=== PATIENT | female | born 2005 | race Two or more races ===

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

== ENCOUNTER 2023-03-23 15:14 | Emergency (ER) | payer MEDICAID ==
[~2023-03-23] VITALS: Ht 157.5 cm; Wt 81.6 kg
[~2023-03-23 15:14] MED LIST changes: +ONDA4TAB11 PO
[2023-03-23] MEDS ORDERED: diphenhydrAMINE HCL ELIX 25 MG/10 ML UDC ONE (16:59)
[2023-03-23] MEDS ORDERED: DIPHENHYDRAMINE HCL 12.5 MG/5 ML UDC PO ONE (17:00)
[2023-03-23 17:28] LABS: HEMATOCRIT 41 % (33-45); HEMOGLOBIN 13.5 g/dL (11.5-14.8); LYMPHOCYTES # (AUTO) 1.7 K/uL (0.8-4.8); LYMPHOCYTES % (AUTO) 12.4 % (20.0-44.0); MEAN CORPUSCULAR HEMOGLOBIN 27 PG (26.0-33.0); MEAN CORPUSCULAR HGB CONC 33 g/dl (31.0-36.0); MEAN CORPUSCULAR VOLUME 80 fL (82-100); MONOCYTES # (AUTO) 0.9 K/uL (0.1-1.30); MONOCYTES % (AUTO) 6.6 % (2.0-12.0); NEUTROPHILS # (AUTO) 11.3 K/uL (1.8-8.9); PLATELET COUNT (AUTO) 462 K/uL (150-450); RED BLOOD CELL COUNT(AUTO) 5.07 MIL/uL (4.0-5.2); RED CELL DISTRIBUTION WIDTH 15.1 % (11.5-15.0); WHITE BLOOD COUNT (AUTO) 13.9 K/uL (4.3-11.0)
[2023-03-23 17:45] LABS: MAGNESIUM 2.3 mg/dL (1.8-2.4)
[2023-03-23 17:51] LABS: PREGNANCY TEST URINE QUAL NEGATIVE (NEGATIVE)
[2023-03-23 17:57] LABS: ALBUMIN 5.2 g/dL (3.4-5.0); BILIRUBIN,DIRECT 0.2 mg/dL (0.0-0.2); BILIRUBIN,TOTAL 0.6 mg/dL (0.2-1.0); CALCIUM, SERUM 10.5 mg/dL (8.5-10.1); CREATININE 1.2 mg/dL (0.6-1.3); TOTAL PROTEIN, SERUM 9.5 g/dL (6.4-8.2)
[2023-03-23 17:59] LABS: POTASSIUM 2.7 mmol/L (3.5-5.1)
[2023-03-23 18:26] LABS: THYROID STIMULATING HORMONE 1.571 uIU/mL (0.358-3.74)
[2023-03-23] MEDS ORDERED: ONDANSETRON HCL/PF 4 MG/2 ML VIAL IV ONE (18:30)
[2023-03-23] MEDS ORDERED: POTASSIUM CHLORIDE 20 MEQ TAB.PRT.SR PO ONE ×2 (18:30→18:52)
[2023-03-23] MEDS ORDERED: ONDANSETRON HCL/PF 4 MG/2 ML VIAL ONE (18:47)
[2023-03-23] MEDS ORDERED: ONDA4TAB5 PO (20:28)
[2023-03-23 21:45] VITALS: BP 113/56; TEMP 98.7; O2SAT 100
== END 2023-03-23 20:35 | disposition home or self-care (01) ==
LOC: ER 15:23
DX: E87.6 Hypokalemia (principal); R11.2 Nausea with vomiting, unspecified; Z88.8 Allergy status to other drugs, medicaments and biological substances
CPT/HCPCS: 99285; 74176; 96374; 85025; 80048; 80076; 83735; 84703; 36415; 84443; Q0163 ×2; J2405

== ENCOUNTER 2023-03-25 06:12 | Emergency (ER) | payer MEDICAID ==
[~2023-03-25] VITALS: Ht 157.5 cm; Wt 81.6 kg
[2023-03-25] MEDS ORDERED: FAMOTIDINE/PF INJ 20 MG/2 ML VIAL IV ONE ×2 (07:30→07:58)
[2023-03-25] MEDS ORDERED: ONDANSETRON HCL/PF 4 MG/2 ML VIAL IVP ONE (07:30)
[2023-03-25] MEDS ORDERED: IV NS 0.9% 1,000 ML BAG IV ONE (07:30)
[2023-03-25 07:56] LABS: BASOPHILS % (AUTO) 0.3 % (0.0-2.0); HEMATOCRIT 40 % (33-45); HEMOGLOBIN 13.4 g/dL (11.5-14.8); LYMPHOCYTES # (AUTO) 2.6 K/uL (0.8-4.8); MEAN CORPUSCULAR HEMOGLOBIN 27 PG (26.0-33.0); MEAN CORPUSCULAR HGB CONC 34 g/dl (31.0-36.0); MEAN CORPUSCULAR VOLUME 79 fL (82-100); MONOCYTES # (AUTO) 1.1 K/uL (0.1-1.30); MONOCYTES % (AUTO) 8.8 % (2.0-12.0); NEUTROPHILS # (AUTO) 8.6 K/uL (1.8-8.9); NEUTROPHILS % (AUTO) 69.9 % (43.0-81.0); PLATELET COUNT (AUTO) 456 K/uL (150-450); RED BLOOD CELL COUNT(AUTO) 5.01 MIL/uL (4.0-5.2); RED CELL DISTRIBUTION WIDTH 14.8 % (11.5-15.0); WHITE BLOOD COUNT (AUTO) 12.3 K/uL (4.3-11.0)
[2023-03-25] MEDS ORDERED: ONDANSETRON HCL/PF 4 MG/2 ML VIAL ONE ×2 (07:58→11:55)
[2023-03-25 08:08] LABS: CALCIUM, SERUM 10.6 mg/dL (8.5-10.1); CREATININE 1.1 mg/dL (0.6-1.3)
[2023-03-25 08:11] LABS: POTASSIUM 2.7 mmol/L (3.5-5.1)
[2023-03-25 08:18] LABS: BILIRUBIN,DIRECT 0.3 mg/dL (0.0-0.2); BILIRUBIN,TOTAL 1.1 mg/dL (0.2-1.0); TOTAL PROTEIN, SERUM 8.8 g/dL (6.4-8.2)
[2023-03-25] MEDS ORDERED: POTASSIUM CL. PREMIX PERIPHER. 50 ML ONE (08:26)
[2023-03-25] MEDS ORDERED: POTASSIUM CHLORIDE 20 MEQ TAB.PRT.SR PO ONE ×2 (08:26→08:30)
[2023-03-25] MEDS ORDERED: POTASSIUM CHLORIDE 10 MEQ/50 ML PREMIXED IVPB FOR PERIPHERAL LINE IV ONE (08:30)
[2023-03-25] MEDS ORDERED: ONDANSETRON HCL/PF - ER 4 MG/2 ML VIAL IV ONE (12:00)
[2023-03-25] MEDS ORDERED: MECL-159 PO (13:01)
[2023-03-25] MEDS ORDERED: ONDA4TAB11 PO (14:42)
[2023-03-25 19:00] VITALS: BP 121/69; TEMP 98.2; O2SAT 97
[2023-03-25] MEDS ORDERED: PROC-11 PO (23:50)
== END 2023-03-25 16:45 | disposition home or self-care (01) ==
LOC: ER 06:19
DX: E87.6 Hypokalemia (principal); R11.2 Nausea with vomiting, unspecified; I10 Essential (primary) hypertension; Z88.8 Allergy status to other drugs, medicaments and biological substances
CPT/HCPCS: 99284; 96365; 96375; 96361; 93005; 96376; 85025; 80048; 83690; 80076; 83735; 36415; J3490; J2405 ×2; J7030; J3480; A4223

== ENCOUNTER 2023-03-25 21:25 | Emergency (ER) | payer MEDICAID ==
[~2023-03-25] VITALS: Ht 157.5 cm; Wt 81.6 kg
[~2023-03-25 21:25] MED LIST changes: +MECL-159 PO
[2023-03-25] MEDS ORDERED: PROCHLORPERAZINE EDISYLATE 10 MG/2 ML VIAL ONE (22:17)
[2023-03-25] MEDS ORDERED: PROCHLORPERAZINE EDISYLATE 10 MG/2 ML VIAL IVP ONE (22:30)
[2023-03-25 22:53] LABS: CALCIUM, SERUM 9.5 mg/dL (8.5-10.1); CREATININE 1.1 mg/dL (0.6-1.3); POTASSIUM 2.9 mmol/L (3.5-5.1)
[2023-03-25 22:54] LABS: BASOPHILS % (AUTO) 0.2 % (0.0-2.0); EOSINOPHILS % (AUTO) 0.1 % (0.0-6.0); HEMATOCRIT 36 % (33-45); LYMPHOCYTES # (AUTO) 2.8 K/uL (0.8-4.8); LYMPHOCYTES % (AUTO) 21.3 % (20.0-44.0); MEAN CORPUSCULAR HEMOGLOBIN 27 PG (26.0-33.0); MEAN CORPUSCULAR HGB CONC 33 g/dl (31.0-36.0); MEAN CORPUSCULAR VOLUME 80 fL (82-100); MONOCYTES % (AUTO) 7.7 % (2.0-12.0); NEUTROPHILS # (AUTO) 9.3 K/uL (1.8-8.9); NEUTROPHILS % (AUTO) 70.7 % (43.0-81.0); PLATELET COUNT (AUTO) 393 K/uL (150-450); RED BLOOD CELL COUNT(AUTO) 4.52 MIL/uL (4.0-5.2); RED CELL DISTRIBUTION WIDTH 14.8 % (11.5-15.0); WHITE BLOOD COUNT (AUTO) 13.2 K/uL (4.3-11.0)
[2023-03-25] MEDS ORDERED: PROC-11 PO (23:50)
[2023-03-26 00:16] VITALS: BP 124/69; TEMP 98.1; O2SAT 100
== END 2023-03-26 00:16 | disposition home or self-care (01) ==
LOC: ER 21:27
DX: R11.2 Nausea with vomiting, unspecified (principal); F17.200 Nicotine dependence, unspecified, uncomplicated; Z79.899 Other long term (current) drug therapy; Z88.1 Allergy status to other antibiotic agents
CPT/HCPCS: 99284; 96374; 93005; 85025; 80048; 36415; J0780

== ENCOUNTER 2023-03-26 23:59 | Inpatient (IN) | payer MEDICAID ==
[~2023-03-26] VITALS: Ht 157.5 cm; Wt 83.5 kg
[~2023-03-26 23:59] MED LIST changes: +PROC-11 PO
[2023-03-27] MEDS ORDERED: ONDANSETRON HCL/PF 4 MG/2 ML VIAL ONE ×2 (00:28→02:04)
[2023-03-27] MEDS ORDERED: ONDANSETRON HCL/PF 4 MG/2 ML VIAL IM ONE (00:30)
[2023-03-27 00:54] LABS: BASOPHILS # (AUTO) 0.1 K/uL (0.0-0.2); BASOPHILS % (AUTO) 0.5 % (0.0-2.0); EOSINOPHILS # (AUTO) 0.1 K/uL (0.0-0.7); EOSINOPHILS % (AUTO) 0.8 % (0.0-6.0); HEMATOCRIT 37 % (33-45); HEMOGLOBIN 12.3 g/dL (11.5-14.8); LYMPHOCYTES # (AUTO) 1.7 K/uL (0.8-4.8); MEAN CORPUSCULAR HEMOGLOBIN 26 PG (26.0-33.0); MEAN CORPUSCULAR HGB CONC 33 g/dl (31.0-36.0); MEAN CORPUSCULAR VOLUME 79 fL (82-100); MONOCYTES # (AUTO) 0.6 K/uL (0.1-1.30); MONOCYTES % (AUTO) 5.4 % (2.0-12.0); NEUTROPHILS # (AUTO) 8.8 K/uL (1.8-8.9); NEUTROPHILS % (AUTO) 78.3 % (43.0-81.0); PLATELET COUNT (AUTO) 433 K/uL (150-450); RED BLOOD CELL COUNT(AUTO) 4.67 MIL/uL (4.0-5.2); RED CELL DISTRIBUTION WIDTH 14.5 % (11.5-15.0); WHITE BLOOD COUNT (AUTO) 11.2 K/uL (4.3-11.0)
[2023-03-27 01:00] LABS: CALCIUM, SERUM 9.6 mg/dL (8.5-10.1); CREATININE 1.1 mg/dL (0.6-1.3)
[2023-03-27 01:15] LABS: POTASSIUM 2.5 mmol/L (3.5-5.1)
[2023-03-27] MEDS ORDERED: POTASSIUM CHLORIDE 10 MEQ/50 ML PREMIXED IVPB FOR PERIPHERAL LINE IV ONE (01:30)
[2023-03-27] MEDS ORDERED: POTASSIUM CHLORIDE 20 MEQ TAB.PRT.SR PO ONE ×2 (01:30→11:30)
[2023-03-27] MEDS ORDERED: POTASSIUM CL. PREMIX PERIPHER. 50 ML ONE ×4 (01:50→04:29)
[2023-03-27] MEDS ORDERED: ONDANSETRON HCL/PF 4 MG/2 ML VIAL IV ONE (02:00)
[2023-03-27] MEDS ORDERED: MAGNESIUM HYDROXIDE 30 ML UDC PO PRN (02:30)
[2023-03-27] MEDS ORDERED: ACETAMINOPHEN 325 MG TABLET PO PRN (02:30)
[2023-03-27] MEDS ORDERED: MAG HYDROX/AL HYDROX/SIMETH 30 ML UDC PO PRN (02:30)
[2023-03-27] MEDS ORDERED: IV NS 0.9% 1,000 ML IV PRN (02:30)
[2023-03-27 04:30] VITALS: BP 113/77; TEMP 98.3; O2SAT 98
[2023-03-27] MEDS ORDERED: PROCHLORPERAZINE EDISYLATE 10 MG/2 ML VIAL ONE (05:34)
[2023-03-27 06:07] LABS: ALBUMIN 4.1 g/dL (3.4-5.0); MAGNESIUM 2.2 mg/dL (1.8-2.4); TOTAL PROTEIN, SERUM 7.5 g/dL (6.4-8.2)
[2023-03-27] MEDS: PROCHLORPERAZINE EDISYLATE 10 MG/2 ML VIAL IVP SCH ×3 (06:11→21:00)
[2023-03-27 06:19] LABS: POTASSIUM 2.4 mmol/L (3.5-5.1)
[2023-03-27 09:21] LABS: PREGNANCY TEST URINE QUAL NEGATIVE (NEGATIVE)
[2023-03-27] MEDS: PANTOPRAZOLE 40 MG VIAL IV SCH (10:27)
[2023-03-27] MEDS ORDERED: MORPHINE SULFATE INJ 2 MG/ML DISP.SYRIN IV PRN (11:30)
[2023-03-27] MEDS: POTASSIUM CL. PREMIX PERIPHER. 50 ML IV SCH ×5 (11:45→20:44)
[2023-03-27 12:18] VITALS: BP 130/86; TEMP 98.2; O2SAT 99
[2023-03-27 17:47] LABS: THYROID STIMULATING HORMONE 1.13 uIU/mL (0.358-3.74)
[2023-03-27] MEDS: ONDANSETRON HCL/PF 4 MG/2 ML VIAL IVP PRN (20:57)
[2023-03-28 01:03] VITALS: BP 112/68; TEMP 98.4; O2SAT 95
[2023-03-28] MEDS: PROCHLORPERAZINE EDISYLATE 10 MG/2 ML VIAL IVP SCH ×2 (05:00→13:00)
[2023-03-28 06:17] LABS: BASOPHILS % (AUTO) 0.2 % (0.0-2.0); EOSINOPHILS % (AUTO) 0.3 % (0.0-6.0); HEMATOCRIT 39 % (33-45); HEMOGLOBIN 12.7 g/dL (11.5-14.8); LYMPHOCYTES # (AUTO) 4.2 K/uL (0.8-4.8); LYMPHOCYTES % (AUTO) 33.6 % (20.0-44.0); MEAN CORPUSCULAR HEMOGLOBIN 27 PG (26.0-33.0); MEAN CORPUSCULAR HGB CONC 33 g/dl (31.0-36.0); MEAN CORPUSCULAR VOLUME 82 fL (82-100); MONOCYTES # (AUTO) 0.8 K/uL (0.1-1.30); MONOCYTES % (AUTO) 6.7 % (2.0-12.0); NEUTROPHILS # (AUTO) 7.5 K/uL (1.8-8.9); NEUTROPHILS % (AUTO) 59.2 % (43.0-81.0); PLATELET COUNT (AUTO) 406 K/uL (150-450); RED BLOOD CELL COUNT(AUTO) 4.75 MIL/uL (4.0-5.2); RED CELL DISTRIBUTION WIDTH 14.5 % (11.5-15.0); WHITE BLOOD COUNT (AUTO) 12.7 K/uL (4.3-11.0)
[2023-03-28 06:52] LABS: CREATININE 0.9 mg/dL (0.6-1.3); MAGNESIUM 2.5 mg/dL (1.8-2.4); PHOSPHORUS 4.1 mg/dL (2.5-4.9); POTASSIUM 3.4 mmol/L (3.5-5.1)
[2023-03-28 07:00] VITALS: BP 109/80; TEMP 98.4; O2SAT 97
[2023-03-28] MEDS: PANTOPRAZOLE 40 MG VIAL IV SCH (10:14)
[2023-03-28] MEDS ORDERED: POTASSIUM CHLORIDE 20 MEQ TAB.PRT.SR PO ONE (10:30)
[2023-03-28] MEDS ORDERED: POTASSIUM CL. PREMIX PERIPHER. 50 ML IV SCH (10:30)
[2023-03-28] MEDS: ONDANSETRON HCL/PF 4 MG/2 ML VIAL IVP PRN (10:57)
== END 2023-03-28 15:37 | disposition home or self-care (01) | DRG 249 ==
LOC: ER 03-27 00:03 → TELE 03-27 04:05
DX: R11.15 Cyclical vomiting syndrome unrelated to migraine (principal); E87.1 Hypo-osmolality and hyponatremia; E66.9 Obesity, unspecified; E87.6 Hypokalemia; R11.2 Nausea with vomiting, unspecified; Z91.09 Other allergy status, other than to drugs and biological substances; F41.9 Anxiety disorder, unspecified; F12.10 Cannabis abuse, uncomplicated; Z71.51 Drug abuse counseling and surveillance of drug abuser; Z68.33 Body mass index [BMI] 33.0-33.9, adult
CPT/HCPCS: 36415; 70486-TC; 80048-TC; 80053-TC; 83735-TC; 84100-TC; 84439-TC; 84443-TC; 84481; 84703-TC; 85025-TC; A4223; C9113; G0378; J0780; J2270; J2405; J3480; J7030; J7040; J7050

== ENCOUNTER 2023-04-05 20:48 | Inpatient (IN) | payer MEDICAID ==
[~2023-04-05] VITALS: Ht 157.5 cm; Wt 81.6 kg
[~2023-04-05 20:48] MED LIST changes: -MECL-159 PO; -OMEP20TA5 PO; -ONDA4TAB5 PO
[2023-04-05] MEDS ORDERED: diphenhydrAMINE HCL 50 MG/ML VIAL IV ONE (22:30)
[2023-04-05] MEDS ORDERED: PROCHLORPERAZINE EDISYLATE 10 MG/2 ML VIAL IVP ONE (22:30)
[2023-04-05] MEDS ORDERED: IV D5 LR 1,000 ML IV ONE (22:30)
[2023-04-05] MEDS ORDERED: PROCHLORPERAZINE EDISYLATE 10 MG/2 ML VIAL ONE (22:43)
[2023-04-05] MEDS ORDERED: diphenhydrAMINE HCL 50 MG/ML VIAL ONE (22:43)
[2023-04-05 22:49] LABS: BASOPHILS # (AUTO) 0.2 K/uL (0.0-0.2); BASOPHILS % (AUTO) 1.3 % (0.0-2.0); HEMATOCRIT 38 % (33-45); HEMOGLOBIN 12.4 g/dL (11.5-14.8); LYMPHOCYTES # (AUTO) 1.1 K/uL (0.8-4.8); MEAN CORPUSCULAR HEMOGLOBIN 27 PG (26.0-33.0); MEAN CORPUSCULAR HGB CONC 33 g/dl (31.0-36.0); MEAN CORPUSCULAR VOLUME 81 fL (82-100); MONOCYTES # (AUTO) 0.2 K/uL (0.1-1.30); MONOCYTES % (AUTO) 1.8 % (2.0-12.0); NEUTROPHILS # (AUTO) 10.8 K/uL (1.8-8.9); NEUTROPHILS % (AUTO) 87.9 % (43.0-81.0); PLATELET COUNT (AUTO) 500 K/uL (150-450); RED BLOOD CELL COUNT(AUTO) 4.67 MIL/uL (4.0-5.2); RED CELL DISTRIBUTION WIDTH 15.2 % (11.5-15.0); WHITE BLOOD COUNT (AUTO) 12.3 K/uL (4.3-11.0)
[2023-04-05 23:00] LABS: CALCIUM, SERUM 9.6 mg/dL (8.5-10.1); CREATININE 0.9 mg/dL (0.6-1.3); POTASSIUM 3.6 mmol/L (3.5-5.1)
[2023-04-05 23:06] LABS: ALBUMIN 4.3 g/dL (3.4-5.0); BILIRUBIN,DIRECT 0.1 mg/dL (0.0-0.2); BILIRUBIN,TOTAL 0.4 mg/dL (0.2-1.0); TOTAL PROTEIN, SERUM 8.4 g/dL (6.4-8.2)
[2023-04-06] MEDS ORDERED: diphenhydrAMINE HCL 50 MG/ML VIAL ONE (04:58)
[2023-04-06] MEDS ORDERED: ACETAMINOPHEN 325 MG TABLET PO PRN (05:00)
[2023-04-06] MEDS ORDERED: PROCHLORPERAZINE EDISYLATE 10 MG/2 ML VIAL IVP ONE (05:00)
[2023-04-06] MEDS ORDERED: IV NS 0.9% 1,000 ML IV PRN (05:00)
[2023-04-06] MEDS ORDERED: MAG HYDROX/AL HYDROX/SIMETH 30 ML UDC PO PRN (05:00)
[2023-04-06] MEDS ORDERED: ALPRAZOLAM 0.5 MG TABLET PO PRN (05:00)
[2023-04-06] MEDS ORDERED: MAGNESIUM HYDROXIDE 30 ML UDC PO PRN (05:00)
[2023-04-06] MEDS ORDERED: ONDANSETRON HCL/PF 4 MG/2 ML VIAL IVP PRN (05:00)
[2023-04-06] MEDS ORDERED: Z GUARD REMEDY 4 OZ OINT TP PRN (05:00)
[2023-04-06] MEDS ORDERED: diphenhydrAMINE HCL 50 MG/ML VIAL IV ONE (05:00)
[2023-04-06] MEDS: PROCHLORPERAZINE EDISYLATE 10 MG/2 ML VIAL IVP SCH ×3 (05:00→20:40)
[2023-04-06] MEDS ORDERED: ONDANSETRON HCL/PF 4 MG/2 ML VIAL IV PRN (05:00)
[2023-04-06 06:09] LABS: PREGNANCY TEST URINE QUAL NEGATIVE (NEGATIVE)
[2023-04-06 06:20] VITALS: O2SAT 98
[2023-04-06] MEDS: PANTOPRAZOLE 40 MG VIAL IV SCH (09:00)
[2023-04-06] MEDS ORDERED: PANTOPRAZOLE 40 MG VIAL ONE (09:45)
[2023-04-06] MEDS: diphenhydrAMINE HCL 50 MG/ML VIAL IV PRN (13:56)
[2023-04-06 20:48] VITALS: BP 118/64; TEMP 98.1; O2SAT 98
[2023-04-06] MEDS ORDERED: ZOLPIDEM TARTRATE 5 MG TABLET PO PRN (22:00)
[2023-04-07] MEDS: diphenhydrAMINE HCL 50 MG/ML VIAL IV PRN (01:56)
[2023-04-07] MEDS: PROCHLORPERAZINE EDISYLATE 10 MG/2 ML VIAL IVP SCH (05:00)
[2023-04-07 07:30] VITALS: BP 106/68; TEMP 97.3; O2SAT 99
[2023-04-07 07:35] LABS: BASOPHILS % (AUTO) 0.2 % (0.0-2.0); EOSINOPHILS % (AUTO) 0.3 % (0.0-6.0); HEMATOCRIT 33 % (33-45); HEMOGLOBIN 10.9 g/dL (11.5-14.8); LYMPHOCYTES % (AUTO) 40.6 % (20.0-44.0); MEAN CORPUSCULAR HEMOGLOBIN 27 PG (26.0-33.0); MEAN CORPUSCULAR HGB CONC 33 g/dl (31.0-36.0); MEAN CORPUSCULAR VOLUME 82 fL (82-100); MONOCYTES % (AUTO) 9.7 % (2.0-12.0); NEUTROPHILS # (AUTO) 4.9 K/uL (1.8-8.9); NEUTROPHILS % (AUTO) 49.2 % (43.0-81.0); PLATELET COUNT (AUTO) 376 K/uL (150-450); RED CELL DISTRIBUTION WIDTH 15.5 % (11.5-15.0); WHITE BLOOD COUNT (AUTO) 9.9 K/uL (4.3-11.0)
[2023-04-07 07:46] LABS: CALCIUM, SERUM 8.8 mg/dL (8.5-10.1); CREATININE 0.7 mg/dL (0.6-1.3); MAGNESIUM 2.3 mg/dL (1.8-2.4); PHOSPHORUS 4.5 mg/dL (2.5-4.9)
[2023-04-07] MEDS ORDERED: POTASSIUM CL. PREMIX PERIPHER. 50 ML IV SCH (09:00)
[2023-04-07] MEDS: PANTOPRAZOLE 40 MG VIAL IV SCH (10:44)
== END 2023-04-07 13:25 | disposition left against medical advice (07) | DRG 249 ==
LOC: ER 20:48 → TRANSITION 04-06 07:18 → MED 04-06 11:20
PROVIDERS: ADMIT Nurse Practitioner Acute Care; ATTEND Nurse Practitioner Acute Care
DX: R11.2 Nausea with vomiting, unspecified (principal); D72.829 Elevated white blood cell count, unspecified; R11.15 Cyclical vomiting syndrome unrelated to migraine; E86.0 Dehydration; D75.839 Thrombocytosis, unspecified; E66.9 Obesity, unspecified; Z68.32 Body mass index [BMI] 32.0-32.9, adult; Z71.51 Drug abuse counseling and surveillance of drug abuser; F12.10 Cannabis abuse, uncomplicated
CPT/HCPCS: 36415; 80048-TC; 80076-TC; 83690-TC; 83735-TC; 84100-TC; 84703-TC; 85025-TC; A4223; C9113; G0378; J0780; J1200; J2405; J3480; J3490; J7030; J7050

== ENCOUNTER 2023-06-20 07:31 | Inpatient (IN) | payer MEDICAID, OTHER ==
[~2023-06-20] VITALS: Ht 157.5 cm; Wt 85.7 kg
[2023-06-20] MEDS ORDERED: ONDANSETRON HCL/PF 4 MG/2 ML VIAL ONE ×4 (07:47→17:28)
[2023-06-20] MEDS: IV NS 0.9% 1,000 ML BAG IV ONE (08:07)
[2023-06-20] MEDS: ONDANSETRON HCL/PF 4 MG/2 ML VIAL IVP ONE (08:08)
[2023-06-20 08:16] LABS: APPEARANCE,URINE CLEAR (CLEAR); BILIRUBIN,URINE NEGATIVE (NEGATIVE); BLOOD, URINE NEGATIVE Ery/uL (NEGATIVE); COLOR,URINE YELLOW (YELLOW); KETONES,URINE TRACE mg/dL (NEGATIVE); LEUKOCYTE ESTERASE ,URINE NEGATIVE (NEGATIVE); NITRITE, URINE NEGATIVE (NEGATIVE); PROTEIN,URINE NEGATIVE (NEGATIVE); UGLUCOSE NEGATIVE (NEGATIVE); UROBILINOGEN,URINE 0.2 EU/dL (0.2)
[2023-06-20 08:18] LABS: PREGNANCY TEST URINE QUAL NEGATIVE (NEGATIVE)
[2023-06-20 08:18] LABS: BASOPHILS % (AUTO) 0.3 % (0.0-2.0); EOSINOPHILS % (AUTO) 0.1 % (0.0-6.0); HEMATOCRIT 38 % (33-45); HEMOGLOBIN 12.6 g/dL (11.5-14.8); LYMPHOCYTES # (AUTO) 2.2 K/uL (0.8-4.8); LYMPHOCYTES % (AUTO) 16.6 % (20.0-44.0); MEAN CORPUSCULAR HEMOGLOBIN 27 PG (26.0-33.0); MEAN CORPUSCULAR HGB CONC 34 g/dl (31.0-36.0); MEAN CORPUSCULAR VOLUME 80 fL (82-100); MONOCYTES # (AUTO) 0.9 K/uL (0.1-1.30); MONOCYTES % (AUTO) 6.9 % (2.0-12.0); NEUTROPHILS # (AUTO) 10.1 K/uL (1.8-8.9); NEUTROPHILS % (AUTO) 76.1 % (43.0-81.0); PLATELET COUNT (AUTO) 489 K/uL (150-450); RED CELL DISTRIBUTION WIDTH 14.2 % (11.5-15.0); WHITE BLOOD COUNT (AUTO) 13.3 K/uL (4.3-11.0)
[2023-06-20] MEDS: FAMOTIDINE/PF INJ 20 MG/2 ML VIAL IV ONE (08:30)
[2023-06-20] MEDS: MAG HYDROX/AL HYDROX/SIMETH 30 ML UDC PO ONE (08:30)
[2023-06-20] MEDS: LIDOCAINE VISCOUS 2% UD 15 ML UDC MM ONE (08:30)
[2023-06-20] MEDS: DICYCLOMINE HCL INJ 20 MG/2 ML AMPUL IM ONE (08:30)
[2023-06-20 08:38] LABS: ALBUMIN 4.5 g/dL (3.4-5.0); BILIRUBIN,DIRECT 0.1 mg/dL (0.0-0.2); BILIRUBIN,TOTAL 0.7 mg/dL (0.2-1.0); CALCIUM, SERUM 9.4 mg/dL (8.5-10.1); CREATININE 1.1 mg/dL (0.6-1.3); TOTAL PROTEIN, SERUM 8.7 g/dL (6.4-8.2)
[2023-06-20 08:40] LABS: POTASSIUM 2.6 mmol/L (3.5-5.1)
[2023-06-20] MEDS ORDERED: DICYCLOMINE HCL INJ 20 MG/2 ML AMPUL IM ONE (09:08)
[2023-06-20] MEDS ORDERED: POTASSIUM CL. PREMIX PERIPHER. 0 ML ONE (09:08)
[2023-06-20] MEDS ORDERED: LIDOCAINE VISCOUS 2% UD 15 ML UDC ONE (09:08)
[2023-06-20] MEDS ORDERED: MAG HYDROX/AL HYDROX/SIMETH 30 ML UDC ONE (09:08)
[2023-06-20] MEDS ORDERED: POTASSIUM CHLORIDE 20 MEQ TAB.PRT.SR PO ONE (09:09)
[2023-06-20] MEDS ORDERED: FAMOTIDINE/PF INJ 20 MG/2 ML VIAL IV ONE (09:09)
[2023-06-20] MEDS: POTASSIUM CHLORIDE 20 MEQ TAB.PRT.SR PO ONE (09:43)
[2023-06-20] MEDS: POTASSIUM CL. PREMIX PERIPHER. 50 ML IV SCH (09:43)
[2023-06-20] MEDS ORDERED: POTASSIUM CL. PREMIX PERIPHER. 50 ML ONE ×2 (10:15→11:47)
[2023-06-20] MEDS: ONDANSETRON HCL/PF 4 MG/2 ML VIAL IV ONE (11:25)
[2023-06-20 12:11] LABS: CALCIUM, SERUM 9.2 mg/dL (8.5-10.1); CREATININE 0.9 mg/dL (0.6-1.3)
[2023-06-20] MEDS ORDERED: MAGNESIUM HYDROXIDE 30 ML UDC PO PRN (14:00)
[2023-06-20] MEDS ORDERED: ACETAMINOPHEN 325 MG TABLET PO PRN (14:00)
[2023-06-20] MEDS ORDERED: MAG HYDROX/AL HYDROX/SIMETH 30 ML UDC PO PRN (14:00)
[2023-06-20] MEDS ORDERED: Z GUARD REMEDY 4 OZ OINT TP PRN ×2 (14:00→18:30)
[2023-06-20] MEDS ORDERED: MORPHINE SULFATE INJ 2 MG/ML DISP.SYRIN ONE (17:25)
[2023-06-20] MEDS: MORPHINE SULFATE INJ 2 MG/ML DISP.SYRIN IV PRN (17:28)
[2023-06-20] MEDS: ONDANSETRON HCL/PF 4 MG/2 ML VIAL IVP PRN (17:31)
[2023-06-20 20:00] VITALS: BP 124/88; TEMP 99; O2SAT 100
[2023-06-20] MEDS: Potassium Chloride 40 MEQ in IV D5/ 0.9% NACL 1,000 ML IV SCH (20:32)
[2023-06-21 08:00] VITALS: BP 117/76; TEMP 98.8; O2SAT 100
[2023-06-21] MEDS: PANTOPRAZOLE 40 MG VIAL IV SCH (08:20)
[2023-06-21] MEDS ORDERED: ONDA4TAB5 PO (11:32)
[2023-06-21 11:41] LABS: BASOPHILS % (AUTO) 0.2 % (0.0-2.0); EOSINOPHILS % (AUTO) 0.1 % (0.0-6.0); HEMATOCRIT 33 % (33-45); HEMOGLOBIN 11.1 g/dL (11.5-14.8); LYMPHOCYTES % (AUTO) 30.1 % (20.0-44.0); MEAN CORPUSCULAR HEMOGLOBIN 27 PG (26.0-33.0); MEAN CORPUSCULAR HGB CONC 33 g/dl (31.0-36.0); MEAN CORPUSCULAR VOLUME 82 fL (82-100); MONOCYTES # (AUTO) 1.1 K/uL (0.1-1.30); MONOCYTES % (AUTO) 8.6 % (2.0-12.0); NEUTROPHILS # (AUTO) 8.1 K/uL (1.8-8.9); PLATELET COUNT (AUTO) 427 K/uL (150-450); RED CELL DISTRIBUTION WIDTH 14.1 % (11.5-15.0); WHITE BLOOD COUNT (AUTO) 13.3 K/uL (4.3-11.0)
[2023-06-21] MEDS: POTASSIUM CHLORIDE 20 MEQ TAB.PRT.SR PO ONE (11:47)
[2023-06-21 11:57] LABS: ALBUMIN 3.6 g/dL (3.4-5.0); BILIRUBIN,TOTAL 0.4 mg/dL (0.2-1.0); CALCIUM, SERUM 8.7 mg/dL (8.5-10.1); CREATININE 0.7 mg/dL (0.6-1.3); MAGNESIUM 2.4 mg/dL (1.8-2.4); PHOSPHORUS 2.5 mg/dL (2.5-4.9); POTASSIUM 3.8 mmol/L (3.5-5.1)
== END 2023-06-21 16:35 | disposition home or self-care (01) | DRG 422 ==
LOC: ER 07:31 → MED 18:29
PROVIDERS: ADMIT Nurse Practitioner Acute Care; ATTEND Nurse Practitioner Acute Care
PROC: 05HC33Z Insertion of Infusion Device into Left Basilic Vein, Percutaneous Approach (ICD-10-PCS; principal; 2023-06-20)
DX: E86.1 Hypovolemia (principal); D72.829 Elevated white blood cell count, unspecified; D75.839 Thrombocytosis, unspecified; E87.6 Hypokalemia; E66.9 Obesity, unspecified; F12.188 Cannabis abuse with other cannabis-induced disorder; Z88.8 Allergy status to other drugs, medicaments and biological substances; Z68.34 Body mass index [BMI] 34.0-34.9, adult
CPT/HCPCS: 36415; 71045-TC; 80048-TC; 80053-TC; 80076-TC; 83690-TC; 83735-TC; 84100-TC; 84703-TC; 85025-TC; A4223; C9113; G0378; J0500; J2270; J2405; J3480; J3490; J7030; J7042

== ENCOUNTER 2023-09-24 12:00 | Emergency (ER) | payer OTHER ==
[~2023-09-24] VITALS: Ht 157.5 cm; Wt 81.6 kg
[~2023-09-24 12:00] MED LIST changes: -ONDA4TAB11 PO; +ONDA4TAB5 PO; -PROC-11 PO
[2023-09-24 12:10] VITALS: TEMP 98.2
[2023-09-24] MEDS: IV NS 0.9% 1,000 ML BAG IV ONE (13:20)
[2023-09-24] MEDS ORDERED: ONDANSETRON HCL/PF 4 MG/2 ML VIAL ONE ×2 (13:21→15:02)
[2023-09-24] MEDS: ONDANSETRON HCL/PF 4 MG/2 ML VIAL IVP ONE (13:22)
[2023-09-24 13:33] LABS: BASOPHILS % (AUTO) 0.3 % (0.0-2.0); EOSINOPHILS % (AUTO) 0.1 % (0.0-6.0); HEMATOCRIT 41 % (33-45); HEMOGLOBIN 13.2 g/dL (11.5-14.8); LYMPHOCYTES # (AUTO) 1.1 K/uL (0.8-4.8); LYMPHOCYTES % (AUTO) 8.7 % (20.0-44.0); MEAN CORPUSCULAR HEMOGLOBIN 26 PG (26.0-33.0); MEAN CORPUSCULAR HGB CONC 32 g/dl (31.0-36.0); MEAN CORPUSCULAR VOLUME 80 fL (82-100); MONOCYTES # (AUTO) 0.3 K/uL (0.1-1.30); NEUTROPHILS # (AUTO) 11.6 K/uL (1.8-8.9); NEUTROPHILS % (AUTO) 88.9 % (43.0-81.0); PLATELET COUNT (AUTO) 262 K/uL (150-450); RED BLOOD CELL COUNT(AUTO) 5.07 MIL/uL (4.0-5.2); RED CELL DISTRIBUTION WIDTH 14.7 % (11.5-15.0); WHITE BLOOD COUNT (AUTO) 13.1 K/uL (4.3-11.0)
[2023-09-24 13:38] LABS: CALCIUM, SERUM 9.6 mg/dL (8.5-10.1); CREATININE 0.8 mg/dL (0.6-1.3)
[2023-09-24 13:44] LABS: ALBUMIN 4.3 g/dL (3.4-5.0); BILIRUBIN,DIRECT 0.1 mg/dL (0.0-0.2); BILIRUBIN,TOTAL 0.3 mg/dL (0.2-1.0); TOTAL PROTEIN, SERUM 8.4 g/dL (6.4-8.2)
[2023-09-24] MEDS ORDERED: DICY10CA37 PO (14:45)
[2023-09-24] MEDS: ONDANSETRON HCL/PF 4 MG/2 ML VIAL IV ONE (15:08)
[2023-09-24] MEDS ORDERED: LIDOCAINE VISCOUS 2% UD 15 ML UDC ONE (15:12)
[2023-09-24] MEDS ORDERED: FAMOTIDINE/PF INJ 20 MG/2 ML VIAL IV ONE (15:12)
[2023-09-24] MEDS ORDERED: MAG HYDROX/AL HYDROX/SIMETH 30 ML UDC ONE (15:12)
[2023-09-24] MEDS ORDERED: DICYCLOMINE HCL INJ 20 MG/2 ML AMPUL IM ONE (15:12)
[2023-09-24] MEDS: DICYCLOMINE HCL INJ 20 MG/2 ML AMPUL IM ONE (15:22)
[2023-09-24] MEDS: FAMOTIDINE/PF INJ 20 MG/2 ML VIAL IV ONE (15:22)
[2023-09-24] MEDS: LIDOCAINE VISCOUS 2% UD 15 ML UDC MM ONE (16:50)
[2023-09-24] MEDS: MAG HYDROX/AL HYDROX/SIMETH 30 ML UDC PO ONE (16:51)
[2023-09-24 17:17] VITALS: BP 118/84; O2SAT 97
== END 2023-09-24 17:18 | disposition home or self-care (01) ==
LOC: ER 12:10
DX: R11.2 Nausea with vomiting, unspecified (principal); R10.84 Generalized abdominal pain; R19.7 Diarrhea, unspecified; F12.10 Cannabis abuse, uncomplicated; F17.200 Nicotine dependence, unspecified, uncomplicated; Z88.8 Allergy status to other drugs, medicaments and biological substances
CPT/HCPCS: 99284; 96374; 96361; 96375; 96376; 85025; 80048; 80076; 36415; 96372; J3490; J2405 ×2; J7030; J0500

== ENCOUNTER 2024-04-10 07:10 | Emergency (ER) | payer SELFPAY ==
[~2024-04-10] VITALS: Ht 157.5 cm; Wt 79.4 kg
[~2024-04-10 07:10] MED LIST changes: +DICY10CA37 PO
[2024-04-10] MEDS ORDERED: ONDANSETRON HCL/PF 4 MG/2 ML VIAL ONE ×2 (08:25→11:25)
[2024-04-10] MEDS ORDERED: FAMOTIDINE/PF INJ 20 MG/2 ML VIAL IV ONE (08:25)
[2024-04-10 08:27] LABS: BASOPHILS % (AUTO) 0.3 % (0.0-2.0); EOSINOPHILS # (AUTO) 0.1 K/uL (0.0-0.7); EOSINOPHILS % (AUTO) 1.1 % (0.0-6.0); HEMATOCRIT 42 % (33-45); HEMOGLOBIN 13.8 g/dL (11.5-14.8); LYMPHOCYTES # (AUTO) 0.9 K/uL (0.8-4.8); LYMPHOCYTES % (AUTO) 9.3 % (20.0-44.0); MEAN CORPUSCULAR HEMOGLOBIN 28 PG (26.0-33.0); MEAN CORPUSCULAR HGB CONC 33 g/dl (31.0-36.0); MEAN CORPUSCULAR VOLUME 84 fL (82-100); MONOCYTES # (AUTO) 0.5 K/uL (0.1-1.30); MONOCYTES % (AUTO) 5.3 % (2.0-12.0); NEUTROPHILS # (AUTO) 8.4 K/uL (1.8-8.9); PLATELET COUNT (AUTO) 504 K/uL (150-450); RED BLOOD CELL COUNT(AUTO) 4.96 MIL/uL (4.0-5.2); RED CELL DISTRIBUTION WIDTH 15.8 % (11.5-15.0)
[2024-04-10] MEDS: IV NS 0.9% 1,000 ML BAG IV ONE (08:29)
[2024-04-10] MEDS: ONDANSETRON HCL/PF - ER 4 MG/2 ML VIAL IV ONE ×2 (08:30→11:26)
[2024-04-10] MEDS: FAMOTIDINE/PF INJ 20 MG/2 ML VIAL IV ONE (08:30)
[2024-04-10 08:54] LABS: ALBUMIN 4.9 g/dL (3.4-5.0); BILIRUBIN,DIRECT 0.1 mg/dL (0.0-0.2); BILIRUBIN,TOTAL 0.4 mg/dL (0.2-1.0); POTASSIUM 3.8 mmol/L (3.5-5.1); TOTAL PROTEIN, SERUM 9.5 g/dL (6.4-8.2)
[2024-04-10] MEDS ORDERED: DICY10CA37 PO (12:23)
[2024-04-10] MEDS ORDERED: ONDA4TAB11 PO (12:23)
[2024-04-10 12:35] LABS: APPEARANCE,URINE SLIGHTLY CLOUDY (CLEAR); BILIRUBIN,URINE NEGATIVE (NEGATIVE); BLOOD, URINE NEGATIVE Ery/uL (NEGATIVE); COLOR,URINE YELLOW (YELLOW); KETONES,URINE NEGATIVE (NEGATIVE); LEUKOCYTE ESTERASE ,URINE NEGATIVE (NEGATIVE); NITRITE, URINE NEGATIVE (NEGATIVE); PH,URINE 6.5 (5.0-8.0); PROTEIN,URINE TRACE mg/dl (NEGATIVE); UGLUCOSE NEGATIVE (NEGATIVE); UROBILINOGEN,URINE 0.2 EU/dL (0.2)
[2024-04-10 12:45] LABS: ADD URINE CULTURE NO; BACTERIA,URINE 1+ /HPF (None Seen); RBC,URINE 0-2 /HPF (0-2)
[2024-04-10 12:46] LABS: MUCUS,URINE Few /LPF (None Seen); PREGNANCY TEST URINE QUAL NEGATIVE (NEGATIVE); TRICHOMONAS,URINE None Seen /HPF (None Seen); YEAST,URINE None Seen /HPF (None Seen)
[2024-04-10] MEDS ORDERED: DICYCLOMINE HCL 10 MG CAPSULE PO ONE (12:56)
[2024-04-10] MEDS: DICYCLOMINE HCL 10 MG CAPSULE PO ONE (13:00)
[2024-04-10 13:50] VITALS: BP 110/74; TEMP 98; O2SAT 99
== END 2024-04-10 13:50 | disposition home or self-care (01) ==
LOC: ER 07:10
DX: R19.7 Diarrhea, unspecified (principal); R11.2 Nausea with vomiting, unspecified; K21.9 Gastro-esophageal reflux disease without esophagitis; F17.200 Nicotine dependence, unspecified, uncomplicated; F12.90 Cannabis use, unspecified, uncomplicated
CPT/HCPCS: 99284; 96374; 96361; 96375; 96376; 85025; 80048; 83690; 80076; 84703; 81001; 36415; J3490; J2405 ×4; J7030

== ENCOUNTER 2024-05-19 12:15 | Emergency (ER) | payer MEDICAID ==
[~2024-05-19] VITALS: Ht 157.5 cm; Wt 90.7 kg
[~2024-05-19 12:15] MED LIST changes: +ONDA4TAB11 PO
[2024-05-19] MEDS ORDERED: ONDANSETRON HCL/PF 4 MG/2 ML VIAL ONE ×2 (12:36→13:13)
[2024-05-19] MEDS: ONDANSETRON HCL/PF 4 MG/2 ML VIAL IVP ONE (12:45)
[2024-05-19] MEDS: IV NS 0.9% 1,000 ML BAG IV ONE (12:45)
[2024-05-19 13:07] LABS: BASOPHILS % (AUTO) 0.3 % (0.0-2.0); EOSINOPHILS % (AUTO) 0.3 % (0.0-6.0); HEMATOCRIT 40 % (33-45); HEMOGLOBIN 13.3 g/dL (11.5-14.8); LYMPHOCYTES # (AUTO) 2.3 K/uL (0.8-4.8); LYMPHOCYTES % (AUTO) 24.5 % (20.0-44.0); MEAN CORPUSCULAR HEMOGLOBIN 28 PG (26.0-33.0); MEAN CORPUSCULAR HGB CONC 34 g/dl (31.0-36.0); MEAN CORPUSCULAR VOLUME 84 fL (82-100); MONOCYTES # (AUTO) 0.3 K/uL (0.1-1.30); NEUTROPHILS # (AUTO) 6.8 K/uL (1.8-8.9); NEUTROPHILS % (AUTO) 71.9 % (43.0-81.0); PLATELET COUNT (AUTO) 445 K/uL (150-450); RED BLOOD CELL COUNT(AUTO) 4.76 MIL/uL (4.0-5.2); RED CELL DISTRIBUTION WIDTH 14.8 % (11.5-15.0); WHITE BLOOD COUNT (AUTO) 9.4 K/uL (4.3-11.0)
[2024-05-19] MEDS: ONDANSETRON HCL/PF 4 MG/2 ML VIAL IV ONE (13:14)
[2024-05-19 13:27] LABS: CREATININE 0.8 mg/dL (0.6-1.3); POTASSIUM 3.8 mmol/L (3.5-5.1)
[2024-05-19 13:33] LABS: ALBUMIN 4.2 g/dL (3.4-5.0); BILIRUBIN,DIRECT 0.1 mg/dL (0.0-0.2); BILIRUBIN,TOTAL 0.3 mg/dL (0.2-1.0); TOTAL PROTEIN, SERUM 8.1 g/dL (6.4-8.2)
[2024-05-19] MEDS ORDERED: PROCHLORPERAZINE EDISYLATE 10 MG/2 ML VIAL ONE (14:41)
[2024-05-19] MEDS ORDERED: diphenhydrAMINE HCL 50 MG/ML VIAL ONE (14:41)
[2024-05-19] MEDS ORDERED: DICYCLOMINE HCL 10 MG CAPSULE PO ONE (14:42)
[2024-05-19] MEDS: diphenhydrAMINE HCL 50 MG/ML VIAL IV ONE (14:45)
[2024-05-19] MEDS: DICYCLOMINE HCL INJ 20 MG/2 ML AMPUL IM ONE (14:49)
[2024-05-19] MEDS: PROCHLORPERAZINE EDISYLATE 10 MG/2 ML VIAL IVP ONE (14:49)
[2024-05-19] MEDS ORDERED: ONDA4TAB11 PO (15:15)
[2024-05-19 15:57] VITALS: BP 121/66; TEMP 98.1; O2SAT 99
[2024-05-19] MEDS ORDERED: DIPH25CA83 PO (21:05)
== END 2024-05-19 15:57 | disposition home or self-care (01) ==
LOC: ER 12:29
DX: F12.188 Cannabis abuse with other cannabis-induced disorder (principal); R11.2 Nausea with vomiting, unspecified; F17.200 Nicotine dependence, unspecified, uncomplicated; Z88.8 Allergy status to other drugs, medicaments and biological substances
CPT/HCPCS: 99284; 96374; 96375; 96361; 85025; 80048; 83690; 80076; 36415; 96372; J0780; J1200; J2405 ×2; J7030

== ENCOUNTER 2024-05-19 19:54 | Emergency (ER) | payer MEDICAID ==
[~2024-05-19] VITALS: Ht 157.5 cm; Wt 90.7 kg
[2024-05-19 20:11] VITALS: BP 103/58; TEMP 97.7; O2SAT 99
[2024-05-19] MEDS ORDERED: diphenhydrAMINE HCL 50 MG/ML VIAL ONE (20:15)
[2024-05-19] MEDS: diphenhydrAMINE HCL 50 MG/ML VIAL IM ONE (20:17)
[2024-05-19] MEDS ORDERED: DIPH25CA83 PO (21:05)
== END 2024-05-19 22:02 | disposition home or self-care (01) ==
LOC: ER 20:58
DX: G24.02 Drug induced acute dystonia (principal); F17.200 Nicotine dependence, unspecified, uncomplicated; Z88.8 Allergy status to other drugs, medicaments and biological substances
CPT/HCPCS: 99283; 96372; J1200

== ENCOUNTER 2024-06-09 11:38 | Emergency (ER) | payer MEDICAID ==
[~2024-06-09] VITALS: Ht 157.5 cm; Wt 90.3 kg
[~2024-06-09 11:38] MED LIST changes: +DIPH25CA83 PO
[2024-06-09] MEDS ORDERED: ONDANSETRON HCL/PF 4 MG/2 ML VIAL ONE ×3 (11:55→13:19)
[2024-06-09] MEDS: IV NS 0.9% 1,000 ML BAG IV ONE (12:00)
[2024-06-09] MEDS: ONDANSETRON HCL/PF 4 MG/2 ML VIAL IV ONE ×2 (12:04→13:22)
[2024-06-09] MEDS ORDERED: DICYCLOMINE HCL INJ 20 MG/2 ML AMPUL IM ONE (12:06)
[2024-06-09] MEDS: DICYCLOMINE HCL INJ 20 MG/2 ML AMPUL IM ONE (12:11)
[2024-06-09 12:13] LABS: BASOPHILS % (AUTO) 0.2 % (0.0-2.0); EOSINOPHILS % (AUTO) 0.2 % (0.0-6.0); HEMATOCRIT 40 % (33-45); HEMOGLOBIN 13.3 g/dL (11.5-14.8); LYMPHOCYTES # (AUTO) 1.6 K/uL (0.8-4.8); LYMPHOCYTES % (AUTO) 13.7 % (20.0-44.0); MEAN CORPUSCULAR HEMOGLOBIN 27 PG (26.0-33.0); MEAN CORPUSCULAR HGB CONC 33 g/dl (31.0-36.0); MEAN CORPUSCULAR VOLUME 82 fL (82-100); MONOCYTES # (AUTO) 0.4 K/uL (0.1-1.30); MONOCYTES % (AUTO) 3.8 % (2.0-12.0); NEUTROPHILS # (AUTO) 9.3 K/uL (1.8-8.9); NEUTROPHILS % (AUTO) 82.1 % (43.0-81.0); PLATELET COUNT (AUTO) 468 K/uL (150-450); RED BLOOD CELL COUNT(AUTO) 4.86 MIL/uL (4.0-5.2); RED CELL DISTRIBUTION WIDTH 14.7 % (11.5-15.0); WHITE BLOOD COUNT (AUTO) 11.4 K/uL (4.3-11.0)
[2024-06-09 12:26] LABS: CALCIUM, SERUM 9.4 mg/dL (8.5-10.1); CREATININE 0.9 mg/dL (0.6-1.3); POTASSIUM 3.9 mmol/L (3.5-5.1)
[2024-06-09 12:38] LABS: ALBUMIN 4.4 g/dL (3.4-5.0); BILIRUBIN,DIRECT 0.2 mg/dL (0.0-0.2); BILIRUBIN,TOTAL 0.6 mg/dL (0.2-1.0); TOTAL PROTEIN, SERUM 9.1 g/dL (6.4-8.2)
[2024-06-09] MEDS ORDERED: ONDA4TAB11 PO (12:54)
[2024-06-09] MEDS ORDERED: MORPHINE SULFATE INJ 4 MG/ML DISP.SYRIN ONE (13:19)
[2024-06-09] MEDS: MORPHINE SULFATE INJ 2 MG/ML DISP.SYRIN IV ONE (13:20)
[2024-06-09 15:18] VITALS: BP 122/66; TEMP 97.9; O2SAT 99
[2024-06-10] MEDS ORDERED: FAMO10TA41 PO (10:30)
[2024-06-10] MEDS ORDERED: ONDA4TAB5 PO (10:30)
== END 2024-06-09 15:18 | disposition home or self-care (01) ==
LOC: ER 11:43
DX: R11.2 Nausea with vomiting, unspecified (principal); F12.188 Cannabis abuse with other cannabis-induced disorder; F17.200 Nicotine dependence, unspecified, uncomplicated; Z88.8 Allergy status to other drugs, medicaments and biological substances
CPT/HCPCS: 99284; 96374; 96361; 96375; 96372; 96376; 85025; 80048; 83690; 80076; 36415; J2270; J2405 ×3; J7030; J0500

== ENCOUNTER 2024-06-09 19:09 | Inpatient (IN) | payer MEDICAID ==
[~2024-06-09] VITALS: Ht 160 cm; Wt 86.2 kg
[2024-06-09] MEDS: IV NS 0.9% 1,000 ML BAG IV ONE (19:52)
[2024-06-09 20:04] LABS: BASOPHILS % (AUTO) 0.1 % (0.0-2.0); EOSINOPHILS % (AUTO) 0.1 % (0.0-6.0); HEMATOCRIT 39 % (33-45); HEMOGLOBIN 12.6 g/dL (11.5-14.8); LYMPHOCYTES # (AUTO) 0.8 K/uL (0.8-4.8); LYMPHOCYTES % (AUTO) 5.6 % (20.0-44.0); MEAN CORPUSCULAR HEMOGLOBIN 27 PG (26.0-33.0); MEAN CORPUSCULAR HGB CONC 33 g/dl (31.0-36.0); MEAN CORPUSCULAR VOLUME 83 fL (82-100); MONOCYTES # (AUTO) 0.2 K/uL (0.1-1.30); MONOCYTES % (AUTO) 1.7 % (2.0-12.0); NEUTROPHILS # (AUTO) 12.7 K/uL (1.8-8.9); NEUTROPHILS % (AUTO) 92.5 % (43.0-81.0); PLATELET COUNT (AUTO) 459 K/uL (150-450); RED BLOOD CELL COUNT(AUTO) 4.65 MIL/uL (4.0-5.2); RED CELL DISTRIBUTION WIDTH 15.2 % (11.5-15.0); WHITE BLOOD COUNT (AUTO) 13.7 K/uL (4.3-11.0)
[2024-06-09 20:12] LABS: CALCIUM, SERUM 9.2 mg/dL (8.5-10.1); CREATININE 1.1 mg/dL (0.6-1.3); POTASSIUM 3.6 mmol/L (3.5-5.1)
[2024-06-09 20:18] LABS: ALBUMIN 4.2 g/dL (3.4-5.0); BILIRUBIN,DIRECT 0.2 mg/dL (0.0-0.2); BILIRUBIN,TOTAL 0.6 mg/dL (0.2-1.0); TOTAL PROTEIN, SERUM 8.6 g/dL (6.4-8.2)
[2024-06-09] MEDS ORDERED: ONDANSETRON HCL/PF 4 MG/2 ML VIAL ONE (20:23)
[2024-06-09] MEDS: ONDANSETRON HCL/PF 4 MG/2 ML VIAL IV ONE (20:24)
[2024-06-09] MEDS: diphenhydrAMINE HCL 50 MG/ML VIAL IV ONE ×2 (20:25→23:03)
[2024-06-09] MEDS: HALOPERIDOL LACTATE INJ 5 MG/ML VIAL IM ONE (21:00)
[2024-06-09] MEDS ORDERED: HALOPERIDOL LACTATE INJ 5 MG/ML VIAL ONE (21:10)
[2024-06-09] MEDS ORDERED: IV NS 0.9% 1,000 ML IV PRN (22:30)
[2024-06-09] MEDS: FAMOTIDINE/PF INJ 20 MG/2 ML VIAL IV SCH (22:30)
[2024-06-09] MEDS ORDERED: Z GUARD REMEDY 4 OZ OINT TP PRN (22:30)
[2024-06-09] MEDS ORDERED: ONDANSETRON HCL/PF 4 MG/2 ML VIAL IVP PRN (22:30)
[2024-06-09] MEDS ORDERED: FAMOTIDINE/PF INJ 20 MG/2 ML VIAL IV ONE (23:09)
[2024-06-10 00:30] VITALS: BP 95/65; TEMP 98.4; O2SAT 95
[2024-06-10] MEDS: diphenhydrAMINE HCL 50 MG/ML VIAL IV PRN (08:57)
[2024-06-10] MEDS ORDERED: diphenhydrAMINE HCL 50 MG/ML VIAL IV ONE (09:00)
[2024-06-10] MEDS ORDERED: ONDA4TAB5 PO (10:30)
[2024-06-10] MEDS ORDERED: FAMO10TA41 PO (10:30)
[2024-06-10 12:17] LABS: BASOPHILS % (AUTO) 0.3 % (0.0-2.0); HEMATOCRIT 39 % (33-45); HEMOGLOBIN 12.6 g/dL (11.5-14.8); LYMPHOCYTES # (AUTO) 2.5 K/uL (0.8-4.8); MEAN CORPUSCULAR HEMOGLOBIN 27 PG (26.0-33.0); MEAN CORPUSCULAR HGB CONC 33 g/dl (31.0-36.0); MEAN CORPUSCULAR VOLUME 83 fL (82-100); MONOCYTES # (AUTO) 0.9 K/uL (0.1-1.30); MONOCYTES % (AUTO) 5.9 % (2.0-12.0); NEUTROPHILS # (AUTO) 11.4 K/uL (1.8-8.9); NEUTROPHILS % (AUTO) 76.8 % (43.0-81.0); PLATELET COUNT (AUTO) 477 K/uL (150-450); RED BLOOD CELL COUNT(AUTO) 4.63 MIL/uL (4.0-5.2); RED CELL DISTRIBUTION WIDTH 15.2 % (11.5-15.0); WHITE BLOOD COUNT (AUTO) 14.8 K/uL (4.3-11.0)
[2024-06-10 12:50] LABS: CALCIUM, SERUM 9.1 mg/dL (8.5-10.1); CREATININE 0.7 mg/dL (0.6-1.3); MAGNESIUM 2.5 mg/dL (1.8-2.4); POTASSIUM 3.6 mmol/L (3.5-5.1)
== END 2024-06-10 12:20 | disposition home or self-care (01) | DRG 249 ==
LOC: ER 19:20 → MEDSG1 23:22
PROVIDERS: ADMIT Nurse Practitioner Family
DX: R11.2 Nausea with vomiting, unspecified (principal); D72.829 Elevated white blood cell count, unspecified; E66.9 Obesity, unspecified; F12.10 Cannabis abuse, uncomplicated; R73.9 Hyperglycemia, unspecified; Z68.33 Body mass index [BMI] 33.0-33.9, adult; R10.9 Unspecified abdominal pain
CPT/HCPCS: 36415; 80048-TC; 80076-TC; 83690-TC; 83735-TC; 84100-TC; 85025-TC; G0378; J1200; J1630; J2405; J3490

== ENCOUNTER 2024-11-11 13:16 | Emergency (ER) | payer SELFPAY ==
[~2024-11-11] VITALS: Ht 157.5 cm; Wt 81.6 kg
[~2024-11-11 13:16] MED LIST changes: -DICY10CA37 PO; -DIPH25CA83 PO; +FAMO10TA41 PO; -ONDA4TAB11 PO
[2024-11-11] MEDS ORDERED: ONDANSETRON HCL/PF 4 MG/2 ML VIAL ONE (13:40)
[2024-11-11] MEDS ORDERED: DICYCLOMINE HCL 10 MG CAPSULE PO ONE (13:41)
[2024-11-11] MEDS ORDERED: DICYCLOMINE HCL INJ 20 MG/2 ML AMPUL IM ONE (13:42)
[2024-11-11 13:56] LABS: PLATELET COUNT (AUTO) 459 K/uL (150-450); RED BLOOD CELL COUNT(AUTO) 4.67 MIL/uL (4.0-5.2); RED CELL DISTRIBUTION WIDTH 15.0 % (11.5-15.0); WHITE BLOOD COUNT (AUTO) 15.1 K/uL (4.3-11.0)
[2024-11-11] MEDS: DICYCLOMINE HCL INJ 20 MG/2 ML AMPUL IM ONE (13:59)
[2024-11-11] MEDS: IV NS 0.9% 1,000 ML BAG IV ONE (14:00)
[2024-11-11] MEDS: ONDANSETRON HCL/PF 4 MG/2 ML VIAL IVP ONE (14:00)
[2024-11-11] MEDS ORDERED: LIDOCAINE VISCOUS 2% UD 15 ML UDC ONE (14:01)
[2024-11-11] MEDS ORDERED: MAG HYDROX/AL HYDROX/SIMETH 30 ML UDC ONE (14:01)
[2024-11-11] MEDS ORDERED: FAMOTIDINE/PF INJ 20 MG/2 ML VIAL IV ONE (14:02)
[2024-11-11 14:05] LABS: CALCIUM, SERUM 9.8 mg/dL (8.5-10.1); CREATININE 1.0 mg/dL (0.6-1.3); SODIUM SERUM 141.0 mmol/L (136-145); UREA NITROGEN, BLOOD 14.0 mg/dL (7-18)
[2024-11-11 14:10] LABS: ASPARTATE AMINOTRANSFERASE 17.0 U/L (15-37); TOTAL PROTEIN, SERUM 8.5 g/dL (6.4-8.2)
[2024-11-11] MEDS: LIDOCAINE VISCOUS 2% UD 15 ML UDC MM ONE (14:11)
[2024-11-11] MEDS: MAG HYDROX/AL HYDROX/SIMETH 30 ML UDC PO ONE (14:11)
[2024-11-11] MEDS: FAMOTIDINE/PF INJ 20 MG/2 ML VIAL IV ONE (14:11)
[2024-11-11 14:17] LABS: APPEARANCE,URINE CLEAR (CLEAR); BLOOD, URINE Negative Ery/uL (NEGATIVE); LEUKOCYTE ESTERASE ,URINE Negative (NEGATIVE); NITRITE, URINE NEGATIVE (NEGATIVE); UGLUCOSE Negative (NEGATIVE)
[2024-11-11 14:23] LABS: ADD URINE CULTURE NO; SQUAMOUS EPITHELIAL CELL,UR Moderate /HPF (None Seen)
[2024-11-11 14:24] LABS: AMPHETAMINE, URINE NEGATIVE (NEGATIVE); BARBITURATE, URINE NEGATIVE (NEGATIVE); BENZODIAZEPINE, URINE NEGATIVE (NEGATIVE); COCCAINE, URINE NEGATIVE (NEGATIVE)
[2024-11-11 14:25] LABS: CANNABINOID, URINE POSITIVE (NEGATIVE); OPIATE, URINE POSITIVE (NEGATIVE)
[2024-11-11] MEDS ORDERED: FAMO-131 PO (14:34)
[2024-11-11] MEDS ORDERED: DICY10CA37 PO (14:34)
[2024-11-11 15:43] VITALS: BP 138/66; TEMP 98.8; O2SAT 97
[2024-11-12] MEDS ORDERED: ONDA4TAB11 PO (10:51)
== END 2024-11-11 15:43 | disposition home or self-care (01) ==
LOC: ER 13:20
DX: R11.15 Cyclical vomiting syndrome unrelated to migraine (principal); R10.13 Epigastric pain; F12.90 Cannabis use, unspecified, uncomplicated; E87.6 Hypokalemia; F17.200 Nicotine dependence, unspecified, uncomplicated; Z88.8 Allergy status to other drugs, medicaments and biological substances
CPT/HCPCS: 99284; 96374; 96361; 96375; 85025; 80048; 83690; 80076; 36415; 80307; 81001; 96372; J1308; J2405; J7030; J0500

== ENCOUNTER 2024-11-12 10:25 | Inpatient (IN) | payer SELFPAY ==
[~2024-11-12] VITALS: Ht 157.5 cm; Wt 83.9 kg
[~2024-11-12 10:25] MED LIST changes: +DICY10CA37 PO; +FAMO-131 PO
[2024-11-12] MEDS ORDERED: ONDA4TAB11 PO (10:51)
[2024-11-12] MEDS ORDERED: ONDANSETRON HCL/PF 4 MG/2 ML VIAL ONE (11:01)
[2024-11-12] MEDS ORDERED: LIDOCAINE VISCOUS 2% UD 15 ML UDC ONE (11:01)
[2024-11-12] MEDS ORDERED: MAG HYDROX/AL HYDROX/SIMETH 30 ML UDC ONE (11:01)
[2024-11-12] MEDS ORDERED: DICYCLOMINE HCL INJ 20 MG/2 ML AMPUL IM ONE (11:01)
[2024-11-12] MEDS ORDERED: FAMOTIDINE/PF INJ 20 MG/2 ML VIAL IV ONE (11:02)
[2024-11-12] MEDS: IV NS 0.9% 1,000 ML BAG IV ONE (11:12)
[2024-11-12] MEDS: MAG HYDROX/AL HYDROX/SIMETH 30 ML UDC PO ONE (11:13)
[2024-11-12] MEDS: DICYCLOMINE HCL INJ 20 MG/2 ML AMPUL IM ONE (11:13)
[2024-11-12] MEDS: ONDANSETRON HCL/PF 4 MG/2 ML VIAL IV ONE (11:14)
[2024-11-12] MEDS: LIDOCAINE VISCOUS 2% UD 15 ML UDC MM ONE (11:14)
[2024-11-12] MEDS: FAMOTIDINE/PF INJ 20 MG/2 ML VIAL IV ONE (11:16)
[2024-11-12] MEDS: CAPSAICIN 0.075% CREAM 60 GM TUBE TP ONE (11:41)
[2024-11-12] MEDS: IV NS 0.9% 1,000 ML IV SCH (12:30)
[2024-11-12] MEDS ORDERED: ACETAMINOPHEN 325 MG TABLET PO PRN (12:30)
[2024-11-12] MEDS ORDERED: Z GUARD REMEDY 4 OZ OINT TP PRN (12:30)
[2024-11-12] MEDS ORDERED: MAG HYDROX/AL HYDROX/SIMETH 30 ML UDC PO PRN (12:30)
[2024-11-12] MEDS ORDERED: MAGNESIUM HYDROXIDE 30 ML UDC PO PRN (12:30)
[2024-11-12 12:31] LABS: CALCIUM, SERUM 8.9 mg/dL (8.5-10.1); CREATININE 1.0 mg/dL (0.6-1.3); SODIUM SERUM 144.0 mmol/L (136-145); UREA NITROGEN, BLOOD 14.0 mg/dL (7-18)
[2024-11-12 12:37] LABS: ASPARTATE AMINOTRANSFERASE 17.0 U/L (15-37); TOTAL PROTEIN, SERUM 7.7 g/dL (6.4-8.2)
[2024-11-12 12:38] LABS: PLATELET COUNT (AUTO) 387 K/uL (150-450); RED BLOOD CELL COUNT(AUTO) 4.49 MIL/uL (4.0-5.2); RED CELL DISTRIBUTION WIDTH 14.7 % (11.5-15.0); WHITE BLOOD COUNT (AUTO) 10.9 K/uL (4.3-11.0)
[2024-11-12] MEDS ORDERED: POTASSIUM CL. PREMIX PERIPHER. 50 ML IV SCH (13:00)
[2024-11-12] MEDS: POTASSIUM CHLORIDE 20 MEQ TAB.PRT.SR PO ONE (13:45)
[2024-11-12] MEDS ORDERED: POTASSIUM CHLORIDE 20 MEQ TAB.PRT.SR PO ONE (13:45)
[2024-11-12 14:57] LABS: APPEARANCE,URINE CLEAR (CLEAR); BLOOD, URINE NEGATIVE Ery/uL (NEGATIVE); LEUKOCYTE ESTERASE ,URINE NEGATIVE (NEGATIVE); NITRITE, URINE NEGATIVE (NEGATIVE); UGLUCOSE NEGATIVE (NEGATIVE)
[2024-11-12 15:01] LABS: PREGNANCY TEST URINE QUAL NEGATIVE (NEGATIVE)
[2024-11-12 15:07] LABS: AMPHETAMINE, URINE NEGATIVE (NEGATIVE); BARBITURATE, URINE NEGATIVE (NEGATIVE); BENZODIAZEPINE, URINE NEGATIVE (NEGATIVE); COCCAINE, URINE NEGATIVE (NEGATIVE)
[2024-11-12 15:12] LABS: ADD URINE CULTURE NO; SQUAMOUS EPITHELIAL CELL,UR 0-2 /HPF (None Seen)
[2024-11-12 15:16] LABS: CANNABINOID, URINE POSITIVE (NEGATIVE); OPIATE, URINE POSITIVE (NEGATIVE)
[2024-11-12 16:00] VITALS: BP 104/62; TEMP 98.1; O2SAT 96
[2024-11-12 16:40] VITALS: BP 112/73; TEMP 98.2; O2SAT 99
[2024-11-12] MEDS: ONDANSETRON HCL/PF 4 MG/2 ML VIAL IVP PRN (17:21)
[2024-11-12] MEDS: MORPHINE SULFATE INJ 2 MG/ML DISP.SYRIN IV PRN (19:31)
[2024-11-12 20:00] VITALS: BP 133/95; TEMP 98.6; O2SAT 99
[2024-11-13 08:00] VITALS: BP 115/80; TEMP 98.2; O2SAT 100
[2024-11-13 16:00] VITALS: BP 101/63; TEMP 98.4; O2SAT 97
[2024-11-13 20:00] VITALS: BP 107/80; TEMP 99; O2SAT 96
== END 2024-11-13 20:35 | disposition left against medical advice (07) | DRG 392 ==
LOC: ER 10:36 → MED 13:04
PROVIDERS: ADMIT Internal Medicine; ATTEND Internal Medicine
DX: R11.2 Nausea with vomiting, unspecified (principal); E66.9 Obesity, unspecified; E87.6 Hypokalemia; F12.10 Cannabis abuse, uncomplicated; Z68.33 Body mass index [BMI] 33.0-33.9, adult; E86.0 Dehydration; Z53.29 Procedure and treatment not carried out because of patient's decision for other reasons
CPT/HCPCS: 36415; 80048-TC; 80076-TC; 81001; 83690-TC; 84703-TC; 85025-TC; A4223; G0378; J0500; J1308; J2270; J2405; J7030

== ENCOUNTER 2024-12-06 16:40 | Emergency (ER) | payer MEDICAID ==
[~2024-12-06] VITALS: Ht 157.5 cm; Wt 81.6 kg
[2024-12-06 17:25] VITALS: TEMP 98.4
[2024-12-06] MEDS ORDERED: ONDANSETRON 4 MG TAB.RAPDIS ONE (17:42)
[2024-12-06] MEDS ORDERED: HYDROCODONE/APAP 5/325MG TABLET ONE (17:42)
[2024-12-06] MEDS: HYDROCODONE/APAP 5/325MG TABLET PO ONE (17:44)
[2024-12-06] MEDS: ONDANSETRON 4 MG TAB.RAPDIS SL ONE (17:45)
[2024-12-06 19:35] VITALS: BP 110/82; O2SAT 97
== END 2024-12-06 18:10 | disposition home or self-care (01) ==
LOC: ER 16:43
DX: K80.70 Calculus of gallbladder and bile duct without cholecystitis without obstruction (principal); F17.200 Nicotine dependence, unspecified, uncomplicated; Z88.8 Allergy status to other drugs, medicaments and biological substances
CPT/HCPCS: 99283; Q0162